=== PATIENT | female | born 1965 | race Caucasian/White ===

== ENCOUNTER 2025-04-25 11:46 | Emergency (ER) | payer OTHER ==
[~2025-04-25 11:46] MED LIST: Iopamidol 370 76% 100 ML VIAL ONE
[2025-04-25 12:17] LABS: INR-International Normal Ratio 1.1; Prothrombin Time 14.1 sec (12.0-14.7)
[2025-04-25 12:18] LABS: PTT 37.3 sec (22.9-36.1)
[2025-04-25 12:26] LABS: White Blood Cell (WBC) Count 7.8 10x3/uL (4.8-10.8)
[2025-04-25 12:27] LABS: #Basophils 0.1 thou/uL (0.0-0.2); #Eosinophils 0.1 thou/uL (0.0-0.7); #Lymphocytes 2.5 thou/uL (1.20-3.40); #Monocytes 0.8 thou/uL (0.11-0.59); #Neutrophils 4.3 thou/uL (1.40-6.50); %Basophils 0.8 % (0.0-1.0); %Eosinophils 1.7 % (0.0-10.0); %Lymphocytes 32.5 % (21.0-51.0); %Monocytes 9.8 % (0.0-10.0); %Neutrophils 55.2 % (42.0-75.0); Hematocrit 41.0 % (36.0-47.0); Hemoglobin 13.9 g/dL (12.0-16.0); Manual Diff?? NO; Mean Corpuscular Hemoglobin 27.4 pg (27.0-31.0); Mean Corpuscular Volume 81.2 fl (78.0-98.0); Platelet Count 320 10x3/uL (130-400); Red Blood Cell (RBC) Count 5.06 mill/uL (4.20-5.40)
[2025-04-25] MEDS ORDERED: Dextrose 50% Abboject 50 ML SYRINGE ONE (12:32)
[2025-04-25 12:37] LABS: Anion Gap 17 mmol/L (10-20); BUN (Urea Nitrogen) 15 mg/dL (9.8-20.1); Bilirubin, Total 0.3 mg/dL (0.3-1.2); Calc. Creatinine Clearance 0 mL/min (70-130); Calcium 8.0 mg/dL (7.6-10.4); Carbon Dioxide 24 mmol/L (22-29); Chloride 100 mmol/L (98-107); Glucose 74 mg/dL (70-105); Potassium 3.5 mmol/L (3.5-5.1); Sodium 137 mmol/L (136-145)
[2025-04-25 12:38] LABS: ALT (SGPT) 15 U/L (Less than 34); Albumin 4.1 g/dL (3.1-4.5); Alkaline Phosphatase 106 U/L (40-110); Globulin 3.9 g/dL (2.4-3.5)
[2025-04-25 12:39] LABS: AST (SGOT) 24 U/L (11-34)
[2025-04-25 12:44] LABS: Troponin I Less than 0.010 ng/mL (< 0.028)
[2025-04-25] MEDS ORDERED: Acetaminophen 500 MG TAB ONE (13:17)
[2025-04-25] MEDS ORDERED: Ondansetron PF 4 MG/2 ML Vial ONE (16:00)
== END 2025-04-25 16:08 | disposition short-term general hospital (02) ==
LOC: NAV ERS 11:46
DX: G45.9 Transient cerebral ischemic attack, unspecified (principal); N18.2 Chronic kidney disease, stage 2 (mild); Z55.6 Problems related to health literacy; Z79.82 Long term (current) use of aspirin; Z79.899 Other long term (current) drug therapy
CPT/HCPCS: 36416; 70450; 70496; 70498; 71045; 80053; 84484; 85025; 85610; 85730; 93005; 96374; 96375; J2270; J2405; J7030; J7999; Q9967

== ENCOUNTER 2025-05-02 10:38 | Inpatient (IN) | payer OTHER ==
[2025-05-02] MEDS ORDERED: Acetaminophen 325 MG TAB PO PRN (15:46)
[2025-05-02] MEDS: Famotidine 20 MG TAB PO SCH (20:59)
[2025-05-02] MEDS: Sertraline 100 MG TAB PO SCH (20:59)
[2025-05-02] MEDS: [UNRECOGNIZED DRUG - OTHER] R EAR SCH (20:59)
[2025-05-03 05:42] LABS: #Basophils 0.1 thou/uL (0.0-0.2); #Eosinophils 0.1 thou/uL (0.0-0.7); #Lymphocytes 1.7 thou/uL (1.20-3.40); #Monocytes 0.5 thou/uL (0.11-0.59); #Neutrophils 3.2 thou/uL (1.40-6.50); %Basophils 0.9 % (0.0-1.0); %Eosinophils 2.6 % (0.0-10.0); %Lymphocytes 30.3 % (21.0-51.0); %Monocytes 8.6 % (0.0-10.0); %Neutrophils 57.5 % (42.0-75.0); Hematocrit 41.4 % (36.0-47.0); Hemoglobin 13.8 g/dL (12.0-16.0); Mean Corpuscular Hemoglobin 27.1 pg (27.0-31.0); Mean Corpuscular Volume 81.4 fl (78.0-98.0); Platelet Count 297 10x3/uL (130-400); Red Blood Cell (RBC) Count 5.09 mill/uL (4.20-5.40); White Blood Cell (WBC) Count 5.5 10x3/uL (4.8-10.8)
[2025-05-03] MEDS: Acetaminophen 325 MG TAB PO PRN (05:49)
[2025-05-03 05:55] LABS: ALT (SGPT) 14 U/L (Less than 34); AST (SGOT) 27 U/L (11-34); Albumin 3.8 g/dL (3.1-4.5); Alkaline Phosphatase 109 U/L (40-110); Anion Gap 15 mmol/L (10-20); BUN (Urea Nitrogen) 13 mg/dL (9.8-20.1); Bilirubin, Total 0.2 mg/dL (0.3-1.2); Calc. Creatinine Clearance 89 mL/min (70-130); Calcium 7.7 mg/dL (7.8-10.44); Carbon Dioxide 24 mmol/L (22-29); Chloride 103 mmol/L (98-107); Globulin 3.6 g/dL (2.4-3.5); Glucose 95 mg/dL (70-105); Potassium 3.9 mmol/L (3.5-5.1); Sodium 138 mmol/L (136-145)
[2025-05-03] MEDS: Naproxen 500 MG TAB PO PRN (07:20)
[2025-05-03] MEDS: Losartan 25 MG TAB PO SCH (08:30)
[2025-05-03] MEDS: Multivitamin W/ Minerals 1 TAB PO SCH (08:31)
[2025-05-03] MEDS: Aspirin 81 mg Enteric Coated Tablet PO SCH (08:31)
[2025-05-03] MEDS: NEOMYCIN-POLYMYXIN-HC EAR SUSP 200 DROP/10 ML BOT R EAR SCH ×2 (10:49→15:02)
[2025-05-04 06:27] LABS: Thyroid Stimulating Hormone 0.4605 uIU/mL (0.35-4.94)
[2025-05-04 15:04] LABS: Free T4 (Free Thyroxine) 1.16 ng/dL (0.70-1.48)
[2025-05-05] MEDS: Amoxicillin/Potassium Clav 875 MG TAB PO SCH (09:33)
[2025-05-05] MEDS: Senokot S 8.6-50 MG TAB PO PRN (20:23)
[2025-05-06 05:43] LABS: #Basophils 0.0 thou/uL (0.0-0.2); #Eosinophils 0.2 thou/uL (0.0-0.7); #Lymphocytes 1.9 thou/uL (1.20-3.40); #Monocytes 0.5 thou/uL (0.11-0.59); #Neutrophils 2.4 thou/uL (1.40-6.50); %Basophils 0.8 % (0.0-1.0); %Eosinophils 3.2 % (0.0-10.0); %Lymphocytes 38.3 % (21.0-51.0); %Monocytes 10.5 % (0.0-10.0); %Neutrophils 47.3 % (42.0-75.0); Hematocrit 38.2 % (36.0-47.0); Hemoglobin 12.9 g/dL (12.0-16.0); Mean Corpuscular Hemoglobin 27.4 pg (27.0-31.0); Mean Corpuscular Volume 80.9 fl (78.0-98.0); Platelet Count 274 10x3/uL (130-400); Red Blood Cell (RBC) Count 4.72 mill/uL (4.20-5.40); White Blood Cell (WBC) Count 5.0 10x3/uL (4.8-10.8)
[2025-05-06 05:56] LABS: Anion Gap 15 mmol/L (10-20); BUN (Urea Nitrogen) 12 mg/dL (9.8-20.1); Calc. Creatinine Clearance 99 mL/min (70-130); Calcium 7.6 mg/dL (7.8-10.44); Carbon Dioxide 26 mmol/L (22-29); Chloride 100 mmol/L (98-107); Glucose 91 mg/dL (70-105); Potassium 3.8 mmol/L (3.5-5.1); Sodium 137 mmol/L (136-145)
[2025-05-07] MEDS: Losartan 50 MG TAB ONE (08:51)
[2025-05-07] MEDS: Sertraline 100 MG TAB PO SCH (20:34)
[2025-05-09] MEDS: Losartan 50 MG TAB PO SCH (08:07)
[2025-05-10] MEDS: Losartan 50 MG TAB PO SCH (10:20)
[2025-05-11] MEDS: Losartan 50 MG TAB PO SCH (08:12)
[2025-05-14 03:24] VITALS: BMI 27.7
[2025-05-14] MEDS: Acetaminophen 325 MG TAB PO SCH (10:17)
[2025-05-16 07:46] VITALS: TEMP 98
[2025-05-16 10:17] VITALS: BMI 27.7
[2025-05-16] MEDS: Acetaminophen 325 MG TAB PO SCH (12:19)
[2025-05-16 16:07] VITALS: BP 154/85
== END 2025-05-16 16:15 | disposition home or self-care (01) | DRG 945 ==
LOC: NAV ACUTE 17:36
PROVIDERS: ADMIT Family Medicine; ATTEND Family Medicine
PROC: F07Z9ZZ Gait Training/Functional Ambulation Treatment (ICD-10-PCS; principal; 2025-05-02)
DX: R53.81 Other malaise (principal); G45.9 Transient cerebral ischemic attack, unspecified; I69.952 Hemiplegia and hemiparesis following unspecified cerebrovascular disease affecting left dominant side; N18.2 Chronic kidney disease, stage 2 (mild); I12.9 Hypertensive chronic kidney disease with stage 1 through stage 4 chronic kidney disease, or unspecified chronic kidney disease; F32.9 Major depressive disorder, single episode, unspecified; E89.0 Postprocedural hypothyroidism; F41.1 Generalized anxiety disorder; H66.91 Otitis media, unspecified, right ear; G43.909 Migraine, unspecified, not intractable, without status migrainosus; E83.51 Hypocalcemia; I69.320 Aphasia following cerebral infarction; Z85.850 Personal history of malignant neoplasm of thyroid; Z79.899 Other long term (current) drug therapy; Z79.82 Long term (current) use of aspirin; Z79.02 Long term (current) use of antithrombotics/antiplatelets; Z79.890 Hormone replacement therapy
CPT/HCPCS: 36415; 80048; 80053; 84439; 84443; 85025; Q0162

== ENCOUNTER 2025-09-05 20:05 | Emergency (ER) | payer OTHER ==
[2025-09-05] MEDS ORDERED: diphenhydrAMINE 25 MG CAP ONE (21:18)
== END 2025-09-05 21:25 | disposition home or self-care (01) ==
LOC: NAV ERS 20:05
DX: R05.9 Cough, unspecified (principal); N18.2 Chronic kidney disease, stage 2 (mild)
CPT/HCPCS: 71046